=== PATIENT | female | born 1990 | race Caucasian/White ===

== ENCOUNTER 2021-05-03 23:51 | Emergency (ER) | payer SELFPAY ==
[2021-05-03 23:59] VITALS: BP 131/77; PULSE 98; RESP 18; TEMP 36.8; O2SAT 96; BMI 30.9
--- NOTE | 2021-05-04 00:17 | W.ED.GENADLT ---
HPI - General Adult General: Chief complaint: General Medical Stated complaint: R Breast Pain Time Seen by Provider: 05/04/21 00:09 History of Present Illness: HPI narrative: Tenderness to right nipple area since yesterday. No known injury. Has had some drainage from that nipple since yesterday. Denies any health problems. Onset (ago): day(s) Associated symptoms: Reports no associated symptoms; Deny rash or vomiting Review of Systems Eyes: Denies: eye discharge ENMT: Denies: throat pain, oral sores or nasal congestion Resp: Reports: non-productive cough; Denies: wheezing or stridor GI: Denies: vomiting or diarrhea Skin/Breast: Reports: skin tenderness, breast tenderness (Right nipple) and nipple discharge (Right nipple , whitish to clear); Denies: rash, breast mass, breast skin changes or change in breast shape [facility] ED Female Reproductive History: Date of last menstrual period: 04/27/21 Physical Exam Const: COMMON NORMALS: no acute distress GENERAL APPEARANCE: cooperative Psych: COMMON NORMALS: mental status grossly normal Skin: OTHER: 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 No erythema noted to the breast itself no significant tenderness to the breast. No drainage currently from the nipple. No lymphadenopathy noted. No mass or lumps noted to the breast. Course Vital Signs: Vital signs: Vital Signs Temperature 98.3 F 05/03/21 23:59 Pulse Rate 98 05/03/21 23:59 Respiratory Rate 18 05/03/21 23:59 Blood Pressure 131/77 05/03/21 23:59 Pulse Oximetry 96 05/03/21 23:59 Discharge Plan Discharge Patient Disposition: Home Clinical Impression: Nipple infection Condition: Stable Prescriptions: New clindamycin HCl 300 mg capsule 300 mg PO Q8H 7 Days Qty: 21 RF: 0 tramadol 50 mg tablet 50 mg PO TID PRN (Reason: pain) Qty: 7 RF: 0 Discharge Orders: Discharge ED (Routine); Ordered 05/04/21 Ordered By: David Goode Discharge Diet: Usual diet Discharge Activity: Resume usual activity Patient Instructions: Cellulitis (ED) Activity Restrictions/Additional Instructions: Follow-up with medical provider as directed. Take medications as prescribed. Return to the ER or your medical provider if condition worsens. Please read and understand discharge instructions. If any questions ask please. See your primary care provider first next week. Coding Level of Care Code ED Employment Service Specialist for Dillon Martinez
[2021-05-04] MEDS: clindamycin 150 mg Capsule 300 MG PO (00:23)
[2021-05-04 00:24] VITALS: RESP 18
== END 2021-05-04 00:25 | disposition home or self-care (01) ==
PROVIDERS: Emergency Provider Nurse Practitioner Family
DX: N61.0 Mastitis without abscess (principal)
CPT/HCPCS: 99282

== ENCOUNTER → 2022-11-03 14:00 | Outpatient (BNVA) | payer BC, MEDICAID, SELFPAY | PROVIDERS: Referring Provider Family Medicine; Visit Provider Obstetrics & Gynecology | DX: R87.619 Unspecified abnormal cytological findings in specimens from cervix uteri (principal) | CPT/HCPCS: 87624; 88305; 88342 ==

== ENCOUNTER 2022-12-18 10:30 | Day surgery (SDC) | payer BC, MEDICAID, SELFPAY ==
[2022-12-16 16:28] VITALS: BMI 27.3
[2022-12-18] VITALS (7 sets, daily range): BP systolic 103–135; BP diastolic 68–85; PULSE 62–91; RESP 16–18; TEMP 36.5–36.6; O2SAT 92–99
[2022-12-18 10:53] LABS: OR HCG Qualitative Urine Negative (Negative)
[2022-12-18] MEDS: sodium chloride 0.9% 1,000 ML 30 ML IV (11:06)
--- NOTE | 2022-12-18 11:26 | W.PM.OPSUD ---
Surgery/Procedure H&P Update DATE OF PROCEDURE: December 18, 2022 DATE H&P PERFORMED: 11/24/22 H&P UPDATE INFORMATION: I have reviewed H&P completed within last 30 days, I have examined patient prior to procedure and No changes to prior documentation PREOP DIAGNOSIS: severe cervical dysplasia PRIMARY INDICATION FOR PROCEDURE: severe cervical dysplasia PLANNED PROCEDURE: Operation Date: 12/18/22 12:00 Proposed Procedures p Cold knife conization of cervix 17699, D06.9(Not Applicable) - Carlos Gonzalez MD
--- NOTE | 2022-12-18 11:31 | ANES.PREANE2 ---
Pre-Anesthetic Assessment Height/Weight: Height 1.63 m Weight 72.121 kg Temp Pulse Resp BP Pulse Ox O2 Del Method 97.7 F 91 18 135/75 99 Room Air 12/18/22 10:45 12/18/22 10:45 12/18/22 10:45 12/18/22 10:45 12/18/22 10:45 12/18/22 10:45 Preop Diagnosis: severe cervical dysplasia Operation Date: 12/18/22 12:00 Proposed Procedures p Cold knife conization of cervix 59836, D06.9(Not Applicable) - Carlos Gonzalez MD Familial anesthetic complications: none Was Beta Yanely taken within 24 hours: N/A Was Clonidine taken within 24 hours: N/A Last intake: Intake Last Liquid Date 12/17/22 Last Liquid Time 23:30 Last Solid Date 12/17/22 Last Solid Time 23:30 Last Intake: 23:30 Social Tobacco and No alcohol 1ppd pack(s) per day 15+ pack years Exam alert, oriented x 3, clear to auscultation bilaterally and regular rate & rhythm Airway Submandibular: within normal limits Cervical ROM: within normal limits Mallampati: Class II Dentition: false Pulmonary None reported CV/HEM None reported None reported Hepatic None reported GI None reported Metabolic None reported Musc/skel None reported Neuropsych None reported Anesthetic Plan ASA status: 2 Anesthesia: General and MAC Risk of > 500 ml blood loss (7ml/kg in children): No Medications/Allergies Allergies Allergy/AdvReac Type Severity Reaction Status Date / Time No Known Allergies Allergy Verified 12/18/22 10:56 Current Medications Generic Name Dose Route Start Last Admin Trade Name Raúlq PRN Reason Stop Dose Admin Sodium Chloride 1,000 mls @ 30 mls/hr 12/18/22 10:45 12/18/22 11:06 Sodium Chloride 0.9% IV 12/19/22 10:44 30 mls/hr .Q24H DENISE Administration PFSH Anesthesia Surgical History (Updated 11/25/22 @ 00:22 by Carlos Gonzalez MD) H/O tubal ligation Family History Grandmother Breast cancer Maternal Father Diabetes Hypertension Grandfather Diabetes Paternal Stroke Maternal Mother Thyroid disease Denies family history of Colon cancer Ovarian cancer Heart disease Suicide Uterine cancer Female Reproductive History Date of last menstrual period: 11/29/22 Data Anesthesia Cardiac Studies: No Data to Display
[2022-12-18] MEDS: vasopressin 20 unit/mL INJ INJECTION (12:08)
--- NOTE | 2022-12-18 12:19 | SUR.OPER ---
lugals and monsels given to provider on the surgical field, monsels applied to cervix.
--- NOTE | 2022-12-18 13:17 | ANE.PACU2 ---
Inpatient post-anesthesia follow up: Airway intact: Yes Vital signs: Temperature 97.8 F Pulse Rate 62 Respiratory Rate 18 Blood Pressure 130/85 Pulse Oximetry 96 Oxygen Delivery Me thod Room Air Oxygen Flow Rate 6 Fraction of Inspir ed Oxygen Hydration adequate: Yes Nausea and vomiting: No Pain level: 1 Mental status: Baseline
--- NOTE | 2022-12-18 23:18 | PM.OP ---
Operative Report Date of procedure: December 18, 2022 Pre-op diagnosis: Preop Diagnosis severe cervical dysplasia Post-op diagnosis: same Procedure done: cold-knife conization of cervix Specimens removed/disposition: cone of cervix Surgeon: Carlos Gonzalez MD Anesthesia: MAC Estimated blood loss (mL): 5 Complications: none Brief History: patient with severe cervical dysplasia Procedure: Informed consent signed The patient was taken to the operating room and placed supine on the table. MAC anesthesia was induced. The patient was placed in dorsolithotomy position. The patient was prepped and draped in the usual sterile fashion. A bivalve speculum was placed in the vagina. The anterior lip of the cervix was grasped with a single toothed tenaculum. The cervix was then infiltrated at the cervicovaginal junction with 20 U of vasopressin to decrease bleeding. The cold-knife conization was then performed with a scalpel, to a depth of approximately 5-7 mm. No bleeding was seen. Monsel?s solution was applied. Excellent hemostasis was again noted. All instruments were then removed. The patient was placed supine, awakened, and taken to the recovery room. Postoperative condition: stable EBL: less than 5 cc Complications: none Sponge and instrument counts were correct x two
== END 2022-12-18 13:30 | disposition home or self-care (01) ==
PROVIDERS: Anesthesiology; Visit Provider Obstetrics & Gynecology
PROC: 0UB97ZZ Excision of Uterus, Via Natural or Artificial Opening (ICD-10-PCS; CPT 57520; principal; 2022-12-18 12:00)
DX: N87.1 Moderate cervical dysplasia (principal); F17.210 Nicotine dependence, cigarettes, uncomplicated
CPT/HCPCS: 57520; 81025; 84703; 88307; J2250; J2704; J3010; J3490; J7030

== ENCOUNTER 2024-09-18 19:45 | Emergency (ER) | payer BC, MEDICAID, SELFPAY ==
[2024-09-18 19:51] VITALS: BP 132/77; PULSE 83; RESP 16; TEMP 36.7; O2SAT 98; BMI 27.8
--- NOTE | 2024-09-18 20:03 | XRR_ITS ---
PROCEDURE INFORMATION: Exam: XR Left Shoulder Exam date and time: 09/18/2024 9:40 PM Age: 33 years old Clinical indication: C/O left shoulder pain. No injury. TECHNIQUE: Imaging protocol: Radiologic exam of the left shoulder. Views: 2 or more views. COMPARISON: CR XR chest 1V [id number] 03/29/2019 11:47 PM FINDINGS: Bones/joints: Normal. Soft tissues: Normal. XR/XR shoulder LT min 2V* [id number] IMPRESSION: No acute findings.
[2024-09-18 21:50] VITALS: BP 143/92; O2SAT 99
[2024-09-18 22:26] VITALS: RESP 18
[2024-09-18] MEDS: oxyCODONE-APAP 5-325 mg Tablet 2 TAB PO (22:26)
[2024-09-18] MEDS: predniSONE 20 mg Tablet 40 MG PO (22:26)
--- NOTE | 2024-09-18 23:39 | W.ED.EXTPRO ---
HPI - Extremity Problem General: Chief complaint: Extremity Injury, Upper Stated complaint: L Shoulder Pain Time Seen by Provider: 09/18/24 21:41 History of Present Illness: 33-year-old female with increasing left shoulder pain over 3 days or so. She has been using Tylenol and ibuprofen at home without much relief. She denies a significant injury to the shoulder. No fever. No rashes. Related Data Previous Rx's ?Medication ?Instructions ?Recorded metronidazole 1 % topical gel 1 applic topical QID #60 grams 12/24/22 (Metrogel) ondansetron HCl 4 mg tablet 4 mg PO Q6H PRN nausea and 12/24/22 vomiting #20 tabs hydrocodone 5 mg-acetaminophen 325 1 tab PO Q8H PRN pain #7 tabs 09/18/24 mg tablet methylprednisolone 4 mg tablets in See Rx Instructions PO .COMPLEX 09/18/24 a dose pack (Medrol (Sudheer)) #21 ea Allergies Allergy/AdvReac Type Severity Reaction Status Date / Time No Known Allergies Allergy Verified 04/27/23 10:30 [facility] PFSH: Surgical History H/O tubal ligation Family History Grandmother Breast cancer Maternal Father Diabetes Hypertension Grandfather Diabetes Paternal Stroke Maternal Mother Thyroid disease Denies family history of Colon cancer Ovarian cancer Heart disease Suicide Uterine cancer Physical Exam Const: COMMON NORMALS: no acute distress GENERAL APPEARANCE: cooperative; not ill appearing and not frail appearing HENMT: COMMON NORMALS: normocephalic, atraumatic and Normal external nose present HEAD & SCALP: normocephalic and atraumatic FACE & SINUS: normal facial exam and face symmetric NOSE: Normal external nose present Eye: COMMON NORMALS: Equal, round and reactive pupils present and EOMs intact bilaterally PUPIL: Yes Equal, round and reactive pupils present Neck/C-Spine: GENERAL: Yes trachea midline Chest: CHEST: Yes Symmetrical chest wall rise Resp: COMMON NORMALS: normal respiratory effort and No retractions Cardio: COMMON NORMALS: regular rate and regular rhythm RATE: regular rate RHYTHM: regular rhythm Extremity: NARRATIVE EXTREMITY EXAM: Examination of the left shoulder reveals no deformity. There is tenderness over the rotator cuff footprint. No anterior or posterior joint line tenderness. No AC joint tenderness. There is pain with active and passive range of motion although active is worse. Cattle Killer strength is normal. Sensation is intact distally. Pulses are normal. Neuro: ANNABELLE COMA SCALE: document GCS findings Annabelle coma scale eye opening: Spontaneous [place] coma scale verbal response: Orientated Annabelle coma scale motor response: Obey commands [place] coma scale total score: 15 SENSORY EXAM: Yes extremities (intact) Psych: COMMON NORMALS: speech normal SPEECH: Yes normal speech Skin: COMMON NORMALS: no rashes or lesions noted GENERAL SKIN EXAM: no rashes or lesions noted Course Vital Signs: Vital signs: Vital Signs Temperature 98.1 F 09/18/24 19:51 Pulse Rate 83 09/18/24 19:51 Respiratory Rate 18 09/18/24 22:26 Blood Pressure 143/92 09/18/24 21:50 Pulse Oximetry 99 09/18/24 21:50 Oxygen Delivery Me thod Room Air 09/18/24 19:51 MDM - Extremity (Nontraumatic) Medical Decision Making Patient has tenderness along the rotator cuff footprint of the shoulder. Her x-ray is negative. She was treated for low rotator cuff syndrome. Medrol Dosepak, pain medication. Ice. Outpatient follow-up. Lab Data Radiology Impressions Shoulder X-Ray 09/18/24 20:03 IMPRESSION: No acute findings. All radiology interpretation(s) finalized by discharge Discharge Plan Discharge Patient Disposition: Home Clinical Impression: Rotator cuff syndrome of left shoulder Condition: Stable Prescriptions: New hydrocodone-acetaminophen 5-325 mg tablet 1 tab PO Q8H PRN (Reason: pain) Qty: 7 0RF methylprednisolone [Medrol (Sudheer)] 4 mg tablets,dose pack See Rx Instructions .ROUTE .COMPLEX Qty: 21 0RF Rx Instructions: orally per package directions No Action metronidazole [Metrogel] 1 % gel 1 applic topical QID Qty: 60 1RF ondansetron HCl 4 mg tablet 4 mg PO Q6H PRN (Reason: nausea and vomiting) Qty: 20 1RF Discharge Orders: Discharge ED (Routine); Ordered 09/18/24 Ordered By: Scott Melton Patient Instructions: Rotator Cuff Injury (ED), Opioid Safety, Pain Management Activity Restrictions/Additional Instructions: Medication as directed. Ice can help. You may alternate anti-inflammatories with pain medication. Call your doctor for a follow-up appointment next week. Print Language: Tanzanian Coding Level of Care Code ED Family Practice Nurse Practitioner for Dillon Martinez
== END 2024-09-18 22:32 | disposition home or self-care (01) ==
PROVIDERS: Emergency Provider Emergency Medicine
DX: M75.102 Unspecified rotator cuff tear or rupture of left shoulder, not specified as traumatic (principal)
CPT/HCPCS: 73030; 99283; J7512